=== PATIENT | male | born 1995 ===

== ENCOUNTER 2020-08-11 10:18 | Emergency (ER) | payer BC ==
--- NOTE | 2020-08-11 10:31 | EDM.PDOC ---
ED HPI GENERAL MEDICAL PROBLEM - General Chief Complaint: Syncope Stated Complaint: PASSING OUT Time Seen by Provider: 08/11/20 10:19 Source of Information: Reports: Patient History Limitations: Reports: No Limitations - History of Present Illness INITIAL COMMENTS - FREE TEXT/NARRATIVE: 24M no PMHx presents for recurrent syncopal episodes. Notes that for last couple of weeks he has spells of feeling dizzy/lightheaded/nauseated lasting several seconds and then has to sit or lay down to keep from passing out. Rapidly improves after resting for 15-30 seconds. H/o similar as a child never worked up. Notes mild PANDEY on/off for similar duration. No fevers, CP, SOB, LE pain/swelling. Happened twice this morning - Related Data Allergies Allergy/AdvReac Type Severity Reaction Status Date / Time No Known Allergies Allergy Verified 08/11/20 10:26 Home Meds: Home Meds . [No Known Home Meds] 08/11/20 [History] ED ROS GENERAL - Review of Systems Review Of Systems: Comprehensive ROS is negative, except as noted in HPI. - Physical Exam Exam: See Below Exam Limited By: No Limitations General Appearance: Alert, WD/WN, No Apparent Distress Head Exam: Atraumatic, Normocephalic Neck: Normal Inspection Respiratory/Chest: No Respiratory Distress, Lungs Clear, Normal Breath Sounds, No Accessory Muscle Use Cardiovascular: Normal Peripheral Pulses, Regular Rate, Rhythm, No Edema Neuro Exam (Abbreviated): Alert, Oriented Extremities: Normal Inspection Psychiatric: Normal Affect, Normal Mood Skin Exam: Warm, Dry, Other (no LE swelling/erythema/TTP; LE symmetric) EKG INTERPRETATION EKG Date: 08/11/20 Time: 10:30 Rhythm: NSR [place]: Normal P-Wave: Present QRS: Normal ST-T: Normal QT: Normal Comparison: NA - No Prior EKG (normal, non-ischemic EKG without signs of Brugada/WPW; benign early repolarization pattern in V2-3) Course - Vital Signs Last Recorded V/S: Last Vital Signs Temp 96.9 F 08/11/20 10:24 Pulse 83 08/11/20 10:24 Resp 18 08/11/20 10:24 BP 138/90 08/11/20 10:24 Pulse Ox 98 08/11/20 10:24 - Orders/Labs/Meds Orders: Active Orders 24 hr Category Date Time Status EKG Documentation Completion [RC] STAT Care 08/11/20 11:19 Active Sodium Chloride 0.9% [Normal Saline] 1,000 ml Med 08/11/20 10:34 Active IV .BOLUS Medication Orders Sodium Chloride (Normal Saline) 1,000 mls @ 999 mls/hr IV .BOLUS ONE Stop: 08/11/20 11:34 Last Admin: 08/11/20 11:06 Dose: 999 mls/hr Documented by: JAVIER Labs: Laboratory Tests 08/11/20 08/11/20 08/11/20 Range/Units 10:42 10:42 10:42 WBC 6.79 (4.0-11.0) K/uL RBC 5.00 (4.50-5.90) M/uL Hgb 15.7 (13.0-17.0) g/dL Hct 44.3 (38.0-50.0) % MCV 88.6 (80.0-98.0) fL MCH 31.4 (27.0-32.0) pg MCHC 35.4 (31.0-37.0) g/dL RDW Std Deviation 39.1 (28.0-62.0) fl RDW Coeff of Adrianna 12 (11.0-15.0) % Plt Count 148 L (150-400) K/uL MPV 10.40 (7.40-12.00) fL Neut % (Auto) 72.8 (48.0-80.0) % Lymph % (Auto) 21.5 (16.0-40.0) % [place] % (Auto) 4.7 (0.0-15.0) % Eos % (Auto) 0.9 (0.0-7.0) % Baso % (Auto) 0.1 (0.0-1.5) % Neut # (Auto) 4.9 (1.4-5.7) K/uL Lymph # (Auto) 1.5 (0.6-2.4) K/uL [place] # (Auto) 0.3 (0.0-0.8) K/uL Eos # (Auto) 0.1 (0.0-0.7) K/uL Baso # (Auto) 0.0 (0.0-0.1) K/uL D-Dimer, Quantitative < 0.19 (0.0-0.50) mg/L FEU Sodium 140 (136-148) mmol/L Potassium 3.9 (3.5-5.1) mmol/L Chloride 103 (98-107) mmol/L Carbon Dioxide 24.9 (21.0-32.0) mmol/L BUN 15 (7.0-18.0) mg/dL Creatinine 1.0 (0.8-1.3) mg/dL Est Cr Clr Drug Dosing 119.54 mL/min Estimated GFR (MDRD) > 60.0 ml/min Glucose 107 H (74-106) mg/dL Calcium 8.7 (8.5-10.1) mg/dL Phosphorus 2.3 L (2.6-4.7) mg/dL Magnesium 1.8 (1.8-2.4) mg/dL Total Bilirubin 0.6 (0.2-1.0) mg/dL AST 19 (15-37) IU/L ALT 37 (14-63) IU/L Alkaline Phosphatase 71 (46-116) U/L Total Protein 7.0 (6.4-8.2) g/dL Albumin 4.5 (3.4-5.0) g/dL Globulin 2.5 L (2.6-4.0) g/dL Albumin/Globulin Ratio 1.8 H (0.9-1.6) Meds: Medications Generic Name Dose Route Start Last Admin Trade Name Freq PRN Reason Stop Dose Admin Sodium Chloride 1,000 mls @ 999 mls/hr 08/11/20 10:34 08/11/20 11:06 Normal Saline IV 08/11/20 11:34 999 mls/hr .BOLUS ONE Administration - Re-Assessments/Exams Free Text/Narrative Re-Assessment/Exam: 08/11/20 10:35 Patient well appearing with reassuring history and benign physical exam. Low suspicion serious cardiac pathology as cause of syncopal episodes. Likely vasovagal. EKG normal. Will get basic labs and dispo accordingly. Will give IVFB. Anticipate low risk by [place] syncope rule assuming Hematocrit is >30% (will f/u labs). 08/11/20 11:25 Labs unremarkable; will refer to cardiology for recurrent syncope workup. Return precautions discussed Departure - Departure Time of Disposition: 11:26 Disposition: Home, Self-Care 01 Condition: Good Clinical Impression: Vasovagal syncope - Discharge Information Instructions: Syncope Referrals: PCP,Not In Area [Primary Care Provider] - Forms: ED Department Discharge Additional Instructions: The following information is given to patients seen in the emergency department who are being discharged to home. This information is to outline your options for follow-up care. We provide all patients seen in our emergency department with a follow-up referral. The need for follow-up, as well as the timing and circumstances, are variable depending upon the specifics of your emergency department visit. If you don't have a primary care physician on staff, we will provide you with a referral. We always advise you to contact your personal physician following an emergency department visit to inform them of the circumstance of the visit and for follow-up with them and/or the need for any referrals to a consulting specialist. The emergency department will also refer you to a specialist when appropriate. This referral assures that you have the opportunity for follow-up care with a specialist. All of these measure are taken in an effort to provide you with optimal care, which includes your follow-up. Under all circumstances we always encourage you to contact your private physician who remains a resource for coordinating your care. When calling for follow-up care, please make the office aware that this follow-up is from your recent emergency room visit. If for any reason you are refused follow-up, please contact the [facility] Emergency Department at and asked to speak to the emergency department charge nurse. Follow up with a primary care physician in 1-3 days; if you do not already have one, you can utilize either of the below clinics and let them know you were seen in the ED and require [facility] follow-up: [facility] [address] [place] [id number] [facility] [address] [address] You should also follow up with a association executive for a workup of your unexplained syncopal episodes. These are likely vasovagal and non-emergent, but should be worked up by a specialist: [facility] [address] [place] [id number] Sepsis Event Note (ED) - Evaluation Sepsis Screening Result: No Definite Risk - Focused Exam Vital Signs: Vital Signs Temp Pulse Resp BP Pulse Ox 08/11/20 10:24 96.9 F 83 18 138/90 98 - My Orders Last 24 Hours: My Active Orders 08/11/20 10:34 Sodium Chloride 0.9% [Normal Saline] 1,000 ml IV .BOLUS 08/11/20 11:19 EKG Documentation Completion [RC] STAT - Assessment/Plan Last 24 Hours: My Active Orders 08/11/20 10:34 Sodium Chloride 0.9% [Normal Saline] 1,000 ml IV .BOLUS 08/11/20 11:19 EKG Documentation Completion [RC] STAT
[2020-08-11] MEDS ORDERED: Sodium Chloride 0.9% 1,000 ML IV ONE (10:34)
[2020-08-11 11:10] LABS: BLOOD UREA NITROGEN,BUN 15 mg/dL (7.0-18.0); CARBON DIOXIDE,CO2 24.9 mmol/L (21.0-32.0); CHLORIDE,CL 103 mmol/L (98-107); GLUCOSE RANDOM 107 mg/dL (74-106); POTASSIUM,K 3.9 mmol/L (3.5-5.1); SODIUM,NA 140 mmol/L (136-148)
== END 2020-08-11 11:46 | disposition home or self-care (01) ==
LOC: MW.ED 10:18
DX: R55 Syncope and collapse (principal)
CPT/HCPCS: 36415; 80053; 83735; 84100; 85025; 85379; 93005; 96360; 99284; J7030; 99283